=== PATIENT | male | born 1975 | race American Indian/Alaskan Native ===

== ENCOUNTER 2018-05-31 08:38 | Outpatient (CLI) | payer OTHER ==
[2018-05-31] MEDS ORDERED: PROVENTIL IH ONE (09:31)
== END 2018-05-31 08:39 | disposition home or self-care (01) ==
LOC: PF 08:38
PROVIDERS: ATTEND Internal Medicine
DX: J45.909 Unspecified asthma, uncomplicated (principal); M41.9 Scoliosis, unspecified; M72.9 Fibroblastic disorder, unspecified
CPT/HCPCS: 94060; 94640; 94729